=== PATIENT | female | born 1930 | race African-American/Black ===

== ENCOUNTER → 2018-05-10 | Outpatient (CLI) | payer OTHER | LOC: M.ULTRA 04-22 12:25 | DX: R63.4 Abnormal weight loss (principal); Z90.710 Acquired absence of both cervix and uterus; Z88.6 Allergy status to analgesic agent; Z88.2 Allergy status to sulfonamides ==

== ENCOUNTER 2019-02-14 19:52 | Emergency (ER) | payer OTHER ==
[~2019-02-14] VITALS: Ht 154.9 cm; Wt 56.7 kg
[2019-02-14] MEDS ORDERED: PRINIVIL20 M1 PO (20:08)
[2019-02-14] MEDS ORDERED: HYDROCHLOROTH12.5 M2 PO (20:09)
[2019-02-14] MEDS ORDERED: SUPER THERAVIT1 EACH PO (20:09)
[2019-02-14] MEDS ORDERED: LEVO-T50 MCG PO (20:09)
[2019-02-14 22:03] VITALS: BP 170/59
== END 2019-02-14 22:04 | disposition home or self-care (01) ==
LOC: M.ERS 19:52
DX: S01.81XA Laceration without foreign body of other part of head, initial encounter (principal); I10 Essential (primary) hypertension; E03.9 Hypothyroidism, unspecified; Z88.6 Allergy status to analgesic agent; Z88.2 Allergy status to sulfonamides; W18.39XA Other fall on same level, initial encounter; Y93.89 Activity, other specified; Y92.89 Other specified places as the place of occurrence of the external cause; Y99.8 Other external cause status